=== PATIENT | male | born 1990 | race Caucasian/White ===

== ENCOUNTER 2019-10-14 23:15 | Emergency (ER) | payer BC, OTHER ==
[~2019-10-14] VITALS: Ht 170.2 cm; Wt 115.2 kg
[2019-10-15] MEDS ORDERED: GUAIFEN-CODEINE10 ML PO (00:45)
[2019-10-15 00:46] VITALS: BP 119/73
== END 2019-10-15 00:52 | disposition home or self-care (01) ==
LOC: ER 23:15
DX: J10.1 Influenza due to other identified influenza virus with other respiratory manifestations (principal)